=== PATIENT | male | born 1955 | race Caucasian/White ===

== ENCOUNTER 2017-06-16 12:22 | Day surgery (SDC) | payer OTHER ==
[~2017-06-16] VITALS: Ht 185.4 cm; Wt 77.1 kg
--- NOTE | ~2017-06-16 | OP ---
PATIENT NAME: PARTH HOLGUIN MEDICAL RECORD: [id number] :53 LOCATION:[facility] [id number] ADMISSION DATE:06/16/17 SURGEON: CHRISTIANA CRAIG MD DATE OF OPERATION: 06/17/2017 PREOPERATIVE DIAGNOSIS: Right olecranon fracture. POSTOPERATIVE DIAGNOSIS: Right olecranon fracture. PROCEDURE: ORIF of right olecranon. SURGEON: Christiana Craig MD ANESTHESIA: General. INTRAOPERATIVE COMPLICATIONS: None. SUMMARY OF PATHOLOGIC FINDINGS: While the patient did have some comminution that reduced nicely with a single cannulated screw and FiberWire. OPERATIVE SUMMARY IN DETAIL: After obtaining the appropriate preoperative orthopedic surgery consent as well as anesthetic consultation, evaluation and clearance, the patient was brought to the operating room and placed on the operating table in supine position. After general laryngeal mask airway was administered, the patient was placed in right lateral decubitus position. All pressure points were well padded. He was held firmly to the operating table using the vacuum pack suction system. A tourniquet was placed about the proximal aspect of the right upper extremity. Right upper extremity was then prepped and draped in routine sterile fashion. The arm was elevated and exsanguinated, tourniquet inflated to 350 mmHg. An incision was made in the midline over the posterior olecranon and carried down to the fracture site, it was identified. All fracture hematoma was removed and the joint effusion was also drained. The fracture was gently reduced with fracture reduction forceps. The guidewire for the [employer] cannulated screw system was then placed down the shaft under fluoroscopic guidance and then a 100-mm screw was placed gently across the fracture with a washer. This resulted in excellent yarsanism of the joint anatomy on both AP and lateral planes. At this point, #2 FiberWire was then used in [id number] fashion transosseously to reinforce this fixation. Having completed this, the wound was closed with #1 Vicryl followed by 2-0 Vicryl and skin carroll. Sterile dressings were applied. Tourniquet was deflated. The posterior splint was applied. The patient was awakened, taken to recovery in stable condition. All final needle and sponge counts were correct. TRANSINT:[id number] Voice Confirmation ID: [id number] DOCUMENT ID: [id number] 06/21/2017 Edited to correct date of service, dmm. KIARA TELLEZ, CHRISTIANA HODGES at 1526 CC: [id number] DICTATION DATE: 06/17/17 1404 WIRE PREPARATION WORKER: 06/17/17 1426 DIS IN 06/18/17 [facility] [address] [id number]
[2017-06-16 13:56] LABS: BASOPHILS 0.2 % (0-2); EOSINOPHILS 0.2 % (0-7); HEMATOCRIT 36.8 % (42.0-54.0); HEMOGLOBIN 13.1 g/dL (13.5-17.5); IMMATURE GRANULOCYTES 0.3 % (0-5); LYMPHOCYTES 19.2 % (15-50); MCH 31.5 pg (26.0-34.0); MCHC 35.6 g/dL (31.0-37.0); MCV 88.5 fL (80.0-100.0); MEAN PLATELET VOLUME 8.8 fL (7.4-10.4); MONOCYTES 15.2 % (2-11); NEUTROPHILS 64.9 % (40-80); PLATELET COUNT 240 10x3/uL (130-400); RBC 4.16 10x6/uL (4.20-6.10); RDW 14.8 % (11.5-14.5); WBC 6.6 10x3/uL (4.8-10.8)
[2017-06-16 14:11] LABS: ALBUMIN 3.8 g/dL (3.4-5.0); ALKALINE PHOSPHATASE 69 U/L (46-116); ALT (SGPT) 33 U/L (10-68); BILIRUBIN - TOTAL 0.75 mg/dL (0.2-1.3); CALC OSMOLALITY 246 mosm/kg (275-300); CALCIUM 9.3 mg/dL (8.5-10.1); CARBON DIOXIDE 24.1 mmol/L (21.0-32.0); CHLORIDE - SERUM 90 mmol/L (98-107); CREATININE - SERUM 0.7 mg/dL (0.6-1.3); GLUCOSE 81 mg/dL (74-106); POTASSIUM - SERUM 4.4 mmol/L (3.5-5.1); PROTEIN - SERUM 8.7 g/dL (6.4-8.2); SODIUM 124 mmol/L (136-145); UREA NITROGEN 8 mg/dL (7-18); eGFR NON AFRICAN AMERICAN > 90 mL/min (90-120)
[2017-06-16 14:15] LABS: APTT 28.2 SECONDS (22.8-39.4); INR 0.99 (0.85-1.17); PROTIME 12.7 SECONDS (11.6-15.0)
[2017-06-16 17:55] VITALS: BP 151/86
[2017-06-16 20:54] VITALS: BP 129/69
[2017-06-17] VITALS (8 sets, daily range): BP systolic 121–168; BP diastolic 61–95; Ht 185.4 cm; Wt 77.1 kg
[2017-06-17 05:39] LABS: HEMATOCRIT 32.8 % (42.0-54.0); HEMOGLOBIN 11.4 g/dL (13.5-17.5); MCH 31.1 pg (26.0-34.0); MCHC 34.8 g/dL (31.0-37.0); MCV 89.4 fL (80.0-100.0); MEAN PLATELET VOLUME 9.6 fL (7.4-10.4); PLATELET COUNT 230 10x3/uL (130-400); RBC 3.67 10x6/uL (4.20-6.10); RDW 14.9 % (11.5-14.5)
[2017-06-17 06:01] LABS: WBC 4.4 10x3/uL (4.8-10.8)
[2017-06-17 06:17] LABS: ALKALINE PHOSPHATASE 56 U/L (46-116); ALT (SGPT) 25 U/L (10-68); BILIRUBIN - TOTAL 0.53 mg/dL (0.2-1.3); CALC OSMOLALITY 253 mosm/kg (275-300); CALCIUM 8.7 mg/dL (8.5-10.1); CARBON DIOXIDE 24.6 mmol/L (21.0-32.0); CHLORIDE - SERUM 94 mmol/L (98-107); CREATININE - SERUM 0.6 mg/dL (0.6-1.3); GLUCOSE 80 mg/dL (74-106); POTASSIUM - SERUM 3.8 mmol/L (3.5-5.1); PROTEIN - SERUM 7.2 g/dL (6.4-8.2); SODIUM 128 mmol/L (136-145); UREA NITROGEN 8 mg/dL (7-18); eGFR NON AFRICAN AMERICAN > 90 mL/min (90-120)
[2017-06-17 06:18] LABS: ALBUMIN 2.8 g/dL (3.4-5.0)
[2017-06-17 07:17] LABS: ANISOCYTOSIS OCC; LYMPHOCYTES 31 % (15-50); MONOCYTES 22 % (2-11); NEUTROPHILS 44 % (40-80); PLATELET ESTIMATE NORMAL
[2017-06-18 01:17] VITALS: BP 101/58
[2017-06-18 05:00] VITALS: BP 134/64
[2017-06-18 05:26] LABS: HEMATOCRIT 30.5 % (42.0-54.0); HEMOGLOBIN 10.3 g/dL (13.5-17.5)
[2017-06-18] MEDS ORDERED: HYDROCODONE-APA1 TAB PO (08:05)
[2017-06-18 09:07] VITALS: BP 134/72
== END 2017-06-18 13:21 | disposition home or self-care (01) ==
LOC: OBSVTIME → D.ER 12:22 → D.MS 15:55 → D.ER 15:55 → OBSVTIME 17:00 → EDSTATUS 06-17 14:00 → D.MS 06-18 13:21 → D.ER 06-18 13:21
PROVIDERS: Family Medicine; Orthopaedic Surgery
DX: S52.021A Displaced fracture of olecranon process without intraarticular extension of right ulna, initial encounter for closed fracture (principal); F17.200 Nicotine dependence, unspecified, uncomplicated; Z01.812 Encounter for preprocedural laboratory examination

== ENCOUNTER 2019-10-30 09:48 | Inpatient (IN) | payer OTHER, MEDICARE ==
[~2019-10-30] VITALS: Ht 185.4 cm; Wt 79.5 kg
[~2019-10-30 09:48] MED LIST: HYDROCODONE-APA1 TAB PO
[2019-10-30 12:41] VITALS: BP 196/112
[2019-10-30 13:29] VITALS: BP 191/93
[2019-10-30 14:56] VITALS: BP 156/90
[2019-10-30 20:00] VITALS: BP 175/97
[2019-10-30 20:33] VITALS: BP 175/97; Ht 185.4 cm; Wt 79.5 kg
[2019-10-31] VITALS: BP 137/77
--- NOTE | 2019-10-31 03:20 | NUR ---
COVID TEST COMPLETED, PATIENT TOLERATED WELL, WILL CONTNUE TO MONITOR PATIENT, CALL LIGHT WITHIN REACH
[2019-10-31 04:00] VITALS: BP 140/80
[2019-10-31 06:16] LABS: BASOPHILS 0 % (0-2); EOSINOPHILS 0.2 % (0-7); HEMATOCRIT 29.9 % (42.0-54.0); HEMOGLOBIN 9.6 g/dL (13.5-17.5); IMMATURE GRANULOCYTES 0.3 % (0-5); LYMPHOCYTES 15.5 % (15-50); MCH 24.6 pg (26.0-34.0); MCHC 32.1 g/dL (31.0-37.0); MCV 76.5 fL (80.0-100.0); MEAN PLATELET VOLUME 9.2 fL (7.4-10.4); MONOCYTES 14.5 % (2-11); NEUTROPHILS 69.5 % (40-80); PLATELET COUNT 246 10x3/uL (130-400); RBC 3.91 10x6/uL (4.20-6.10); RDW 19.9 % (11.5-14.5); WBC 6.1 10x3/uL (4.8-10.8)
[2019-10-31 06:37] LABS: CALC OSMOLALITY 245 mosm/kg (275-300); CALCIUM 8.4 mg/dL (8.5-10.1); CARBON DIOXIDE 26.2 mmol/L (21.0-32.0); CHLORIDE - SERUM 90 mmol/L (98-107); CREATININE - SERUM 0.8 mg/dL (0.6-1.3); GLUCOSE 85 mg/dL (74-106); PHOSPHOROUS 2.5 mg/dL (2.5-4.9); POTASSIUM - SERUM 4.2 mmol/L (3.5-5.1); SODIUM 123 mmol/L (136-145); UREA NITROGEN 10 mg/dL (7-18); eGFR NON AFRICAN AMERICAN > 90 mL/min (90-120)
[2019-10-31 07:30] LABS: APTT 32.8 SECONDS (22.8-39.4); INR 0.95 (0.85-1.17); PROTIME 12.7 SECONDS (11.6-15.0)
[2019-10-31 08:36] VITALS: BP 146/78
[2019-10-31 12:39] VITALS: BP 121/72
[2019-10-31 17:20] VITALS: BP 112/61
--- NOTE | 2019-10-31 19:00 | NUR ---
ASSUMED CARE OF PATIENT, PATIENT AAOX4, PATIENT STATED THAT EARLIER HE AMBULATED TO BR WITHOUT ASSIST AND SLIPPED BUT CAUGHT BAR ON WALL BESIDE STOOL TO PREVENT FALLING, PATIENT STATES HE IS OK, INSTRUCTED PATIENT TO USE CALL LIGHT FOR ASSISTANCE, PATIENT VERBALIZED UNDERSTANDING, DENIES NEEDS AT THIS TIME, WILL CONTINUE TO MONITOR PATIENT, CALL LIGHT WITHIN REACH
[2019-10-31 20:00] VITALS: BP 136/72
[2019-11-01] VITALS: BP 116/62
[2019-11-01 04:00] VITALS: BP 153/81
[2019-11-01 06:34] LABS: BASOPHILS 0.2 % (0-2); EOSINOPHILS 0.8 % (0-7); HEMATOCRIT 28.1 % (42.0-54.0); HEMOGLOBIN 9.1 g/dL (13.5-17.5); IMMATURE GRANULOCYTES 0.6 % (0-5); LYMPHOCYTES 18.9 % (15-50); MCH 24.7 pg (26.0-34.0); MCHC 32.4 g/dL (31.0-37.0); MCV 76.4 fL (80.0-100.0); MEAN PLATELET VOLUME 9.2 fL (7.4-10.4); MONOCYTES 14.5 % (2-11); PLATELET COUNT 229 10x3/uL (130-400); RBC 3.68 10x6/uL (4.20-6.10); RDW 19.8 % (11.5-14.5); WBC 6.3 10x3/uL (4.8-10.8)
[2019-11-01 06:55] LABS: ALBUMIN 2.6 g/dL (3.4-5.0); ALKALINE PHOSPHATASE 83 U/L (30-120); ALT (SGPT) 27 U/L (10-68); BILIRUBIN - TOTAL 0.41 mg/dL (0.2-1.3); CALCIUM 8.2 mg/dL (8.5-10.1); CARBON DIOXIDE 25.8 mmol/L (21.0-32.0); CHLORIDE - SERUM 93 mmol/L (98-107); CREATININE - SERUM 0.8 mg/dL (0.6-1.3); POTASSIUM - SERUM 3.9 mmol/L (3.5-5.1); PROTEIN - SERUM 7.1 g/dL (6.4-8.2); SODIUM 126 mmol/L (136-145); eGFR NON AFRICAN AMERICAN > 90 mL/min (90-120)
[2019-11-01 07:06] LABS: CALC OSMOLALITY 254 mosm/kg (275-300); GLUCOSE 134 mg/dL (74-106); UREA NITROGEN 13 mg/dL (7-18)
[2019-11-01 08:50] VITALS: BP 147/80
--- NOTE | 2019-11-01 11:07 | NUR ---
PT WALKED WITH NURSE AROUND THE FLOOR (~250FT) WITHOUT NC/O2. WHEN LAP AROUND HALLWAY WAS COMPLETED HIS SPO2 WAS AT 95%. NO DISTRESS NOTED. BREATHING NORMAL. PT REPORTS NO PAIN OR DIFFICULTY BREATHING. CONTINUING TO MONITOR
[2019-11-01] MEDS ORDERED: TESSALON PERLE100 MG PO (12:17)
[2019-11-01] MEDS ORDERED: MUCINEX600 MG PO (12:17)
[2019-11-01] MEDS ORDERED: NICODERM CQ1 EAC3 TRANSDERM (12:17)
[2019-11-01] MEDS ORDERED: FOLIC ACID1 MG PO (12:17)
[2019-11-01] MEDS ORDERED: MULTI-DAY VITAM1 TAB PO (12:17)
[2019-11-01] MEDS ORDERED: VITAMIN B-1100 M1 PO (12:18)
[2019-11-01] MEDS ORDERED: TYLENOL W/CODEI1 TAB PO ×2 (12:18→12:21)
[2019-11-01] MEDS ORDERED: PROTONIX40 MG PO (12:18)
[2019-11-01 12:44] VITALS: BP 152/84
--- NOTE | 2019-11-01 13:21 | MORECARE ---
CASE MANAGEMENT DISCHARGE SUMMARY PATIENT: PARTH HOLGUIN UNIT: [id number] ADM DATE: 10/31/19 AGE: 64 : 53 SEX: M ROOM/BED: D.2217 AUTHOR: BEBE PEREZ PHYSICIAN: REFERRING PHYSICIAN: GUSTAVO AZEVEDO MD DATE OF SERVICE: 11/01/19 Discharge Plan Patient Name: PARTH HOLGUIN Facility: [facility]:[place] : 1955 Planned Disposition: Home or Self Care Anticipated Discharge Date: Discharge Date: Expected LOS: Initial Reviewer: [email or web address] Initial Review Date: 10/30/2019 Generated: 11/01/19 2:20 pm Comments DCP- Discharge Planning Updated by [email or web address]: Angelina Morel on 11/01/19 12:[address] ETOH EDUCATION/ RESOURCES GIVEN TO PATIENT FOR HIS DISCHARGE Patient Name: PARTH HOLGUIN Page [id number] at 1321 All edits/amendments must be made on the electronic document DICTATION DATE: 11/01/19 1320 IT TRAINEE: KISHA 11/01/19 1320 RPT#: [id number] DC DATE: STATUS: ADM IN [facility] [address] [place] [address] END OF REPORT
--- NOTE | 2019-11-02 17:14 | MORECARE ---
CASE MANAGEMENT DISCHARGE SUMMARY PATIENT: PARTH HOLGUIN UNIT: [id number] ADM DATE: 10/31/19 AGE: 64 : 53 SEX: M ROOM/BED: D.2217 AUTHOR: BEBE PEREZ PHYSICIAN: REFERRING PHYSICIAN: GUSTAVO AZEVEDO MD DATE OF SERVICE: 11/02/19 Discharge Plan Patient Name: PARTH HOLGUIN [facility] [facility] 1955 Planned Disposition: Home or Self Care Anticipated Discharge Date: Discharge Date: 11/01/2019 Expected LOS: Initial Reviewer: [email or web address] Initial Review Date: 10/30/2019 Generated: 11/02/19 6:13 pm Comments DCP- Discharge Planning Updated by [email or web address]: Angelina Morel on 11/01/19 12:[address] ETOH EDUCATION/ RESOURCES GIVEN TO PATIENT FOR HIS DISCHARGE Last DP export: 11/01/19 12:20 p Patient Name: PARTH HOLGUIN Page 79514 at 1714 All edits/amendments must be made on the electronic document DICTATION DATE: 11/02/191713 STILE RIPSAW OPERATOR: KISHA 11/02/191713 RPT#: [id number] DC DATE:11/01/19 STATUS: DIS IN [facility] [address] [place] [address] END OF REPORT
== END 2019-11-01 15:53 | disposition home or self-care (01) | DRG 183 ==
LOC: D.ER 09:48 → D.EDHOLD 13:42 → D.MS 13:42 → OBSVTIME 13:42 → D.MS 13:53
PROVIDERS: Emergency Medicine; Family Medicine; ADMIT Family Medicine; ATTEND Family Medicine
DX: S22.49XA Multiple fractures of ribs, unspecified side, initial encounter for closed fracture (principal); J96.01 Acute respiratory failure with hypoxia; E87.1 Hypo-osmolality and hyponatremia; W19.XXXA Unspecified fall, initial encounter; F17.200 Nicotine dependence, unspecified, uncomplicated; F10.20 Alcohol dependence, uncomplicated; D50.9 Iron deficiency anemia, unspecified